=== PATIENT | female | born 1950 | race Caucasian/White ===

== ENCOUNTER → 2019-04-23 | Outpatient (CLI) | payer MEDICARE, OTHER ==
[2019-04-23 13:30] LABS: International Normalized Ratio 2.22; Prothrombin Time Results 22.7 Sec (9.7-11.5)
== END | disposition home or self-care (01) ==
LOC: LAB 12:54 → LAB SHORT 12:54
PROVIDERS: Nurse Practitioner
DX: I48.91 Unspecified atrial fibrillation (principal)
CPT/HCPCS: 85610

== ENCOUNTER 2020-10-26 15:59 | Observation (INO) | payer MEDICARE, OTHER ==
[~2020-10-26] VITALS: Ht 162.6 cm; Wt 131.9 kg
[2020-10-26 17:34] LABS: BASOPHILS ABSOLUTE AUTO 0.12 K/mm3 (0.00-0.23); BASOPHILS PERCENT AUTO 1 % (0-2); EOSINOPHILS ABSOLUTE AUTO 0.04 K/mm3 (0.00-0.68); EOSINOPHILS PERCENT AUTO 0 % (0-6); Hematocrit 49.4 % (33.0-51.0); Hemoglobin 16.2 g/dL (11.5-16.0); IMMATURE GRAN ABSOLUTE AUTO 0.08 K/mm3 (0.00-0.10); IMMATURE GRAN PERCENT AUTO 1 % (0-1); LYMPHOCYTES ABSOLUTE AUTO 1.19 K/mm3 (0.84-5.20); LYMPHOCYTES PERCENT AUTO 12 % (21-46); MONOCYTES ABSOLUTE AUTO 0.54 K/mm3 (0.16-1.47); MONOCYTES PERCENT AUTO 6 % (4-13); Mean Corpuscular HGB 28.8 pg (26.0-34.0); Mean Corpuscular HGB Conc 32.8 g/dL (31.5-36.5); Mean Corpuscular Volume 88 fL (80-100); NEUTROPHILS ABSOLUTE AUTO 7.62 K/mm3 (1.96-9.15); NEUTROPHILS PERCENT AUTO 80 % (41-73); Platelet Count 216 K/mm3 (150-400); RDW Coefficient Variation 13.9 % (11.7-14.2); RDW Standard Deviation 44.7 fL (35.1-46.3); Red Blood Cell Count 5.62 M/mm3 (3.80-5.20); White Blood Cell Count 9.59 K/mm3 (4.00-11.30)
[2020-10-26 17:53] LABS: Mean Platelet Volume 13.5 fL (9.1-12.4)
[2020-10-26 17:59] LABS: C-REACTIVE PROTEIN, EXT RANGE 1.81 mg/dL (0.000-0.300)
[2020-10-26 18:23] LABS: Albumin, Blood 3.6 g/dL (3.4-5.0); Albumin/Globulin Ratio 0.9 (0.8-1.8); Bilirubin, Total 0.8 mg/dL (0.1-1.0); Bun/Creatinine Ratio 40.7 (12.0-20.0); Calcium, Blood 10.2 mg/dL (8.5-10.1); Creatinine, Blood 1.35 mg/dL (0.40-1.00); Globulin, Blood 3.8 g/dL (2.2-4.0); Potassium, Blood 5.2 mmol/L (3.5-5.5); Total Protein, Blood 7.4 g/dL (6.4-8.2)
[2020-10-26] MEDS ORDERED: NOVOLOG FL100 UNIT/3 SC (19:11)
[2020-10-26] MEDS ORDERED: DIGOXIN 0.125 MG (19:11)
[2020-10-26] MEDS ORDERED: LOSA50 PO (19:12)
[2020-10-26] MEDS ORDERED: Amiodarone HCl200 MG PO (19:12)
[2020-10-26] MEDS ORDERED: EUTHYROX175 MC1 PO (19:13)
[2020-10-26] MEDS ORDERED: JANTOVEN5 M2 PO (19:14)
[2020-10-26] MEDS ORDERED: METO100 PO (19:14)
[2020-10-26] MEDS ORDERED: Simvastatin40 MG PO (19:14)
[2020-10-26 21:10] LABS: Source, Urine Catheter
[2020-10-26 21:12] LABS: Bilirubin, Urine Neg (Neg); Blood, Urine Neg (Neg); Glucose Qualitative, Urine 4+ (Neg); Ketones, Urine 2+ (Neg); Leukocyte Esterase, Urine Neg (Neg); Nitrite, Urine Neg (Neg); Protein, Urine Neg (Neg); Urobilinogen, Urine NORM (Normal)
[2020-10-26 21:18] LABS: Appearance, Urine Clear (Clear); Color, Urine Pale Yellow (P-Yellow)
[2020-10-26] MEDS ORDERED: DIGOX125 MC1 PO (21:42)
[2020-10-26 22:14] LABS: Glucose, Blood 237 mg/dL (70-99)
[2020-10-27 00:07] LABS: Glucose, Blood 399 mg/dL (70-99)
[2020-10-27 00:36] LABS: SARS-Cov-2 (COVID-19) PCR, MMC NEGATIVE (NEGATIVE)
[2020-10-27 06:24] LABS: Bun/Creatinine Ratio 44.8 (12.0-20.0); Calcium, Blood 9.3 mg/dL (8.5-10.1); Creatinine, Blood 1.25 mg/dL (0.40-1.00)
--- NOTE | 2020-10-27 06:50 | NUR ---
SALES ASSOCIATE SUMMARY PT NEW ADMIT. ARRIVED TO UNIT AROUND 0125/ PT IS A/O X4, PLEASANT AND COOPERATIVE. DENIES PAIN. PT IS ON BEDREST, SHE STATES SHE HAS NOT BEEN ABLE TO WALK SINCE SATURDAY DUE TO LEG WEAKNESS. PUREWICK IN PLACE FOR INCONTIENCE. PT STATES SHE HAS NOT HAD A BOWEL MOVEMENT SINCE SATURDAY. THIS RN WILL ATTEMPT TO CALL DR TO GET BOWEL CARE ON BOARD. REPORT GIVEN TO ONCOMING RN. CALL LIGHT WITHIN REACH, REPORT GIVEN TO ONCOMING RN.
--- NOTE | 2020-10-27 18:47 | NUR ---
PT IS AO X 4, PT ADMITED FOR HYPERGLYCEMIA,PT HAVE A FAT PACKET IN HER STOMACK, LAST BM WAS 10/[address] VO REGARDING THAT AND WAS TOLD HE'LL PUT THE ORTHER IN. PT IS IN BED, BED IN LOW POSITION, CALL LIGHT WITHIN REACH.WILL CONTINUE TO MONITOR
--- NOTE | 2020-10-27 19:25 | NUR ---
CREDIT CARD CLERK/AUTOMOTIVE METALSMITH REFERRAL - ADMIT: 10/26/20 DISCHARGE: TBD DX: DM WITH HYPERGLYCEMIA CC: Brea YUNG RESIDENCE: INDEPENDENT - LIVES AT HOME [address] [facility] [address] [address], [place]. [id number] NEXT OF KIN/CONTACTS: JACOB PHOENIX, CHILD, . PRIOR TO ADMIT - DME: DM SUPPLIES CCM: REFERRAL IN 2017 HHC/HOSPICE: [facility] IN 2019 UPDATE 10/27/20: PT. LIVES ALONE IN A STUDIO APARTMENT. SHE HAS A DAUGHTER JACOB WHO ASSISTS WITH TRANSPORTATION AND GROCERIES. PT. HAS A CANE THAT SHE USES AROUND THE HOUSE. WHEELCHAIR USED FOR OUTINGS THAT WOULD REQUIRE AMBULATING LONG DISTANCES. PT/OT PROVIDED EVAL TODAY. RECOMMENDATION FOR D/C TO SNF. PT. HAS MEDICARE - NO NEED FOR PRIOR AUTH. PT. POTENTIALLY APPROPRIATE FOR D/C WITHIN THE NEXT 24-72 HOURS BASED ON CHART REVIEW. PT. LIKELY TO BE ACCEPTED TO [facility] ON SAME DAY OF DISCHARGE IF BED AVAILABLE. IF PT. IS APPROPRIATE FOR DISCHARGE TOMORROW OR OVER THE WEEKEND, PACKET WILL BE SENT TO [facility] TOMORROW FOR POSSIBLE PLACEMENT WITH DATE OF D/C NOTED. PT. WILL NEED JAIL CARE PLAN. NO LONG-TERM COVERAGE NOTED IN CHART. WILL NEED TO TALK WITH LOCKSTITCH WAISTLINE JOINER ABOUT MEDICAID ASSISTANCE OR HIGHER A CAREGIVER. ALTERNATIVELY, HHC COULD BE CONSIDERED DEPENDENT UPON PATIENT'S PROGRESS AT SNF.
--- NOTE | 2020-10-28 05:14 | NUR ---
PT HAS BEEN AWAKE ALL NIGHT, VERY PLEASANT, ALERT AND ORIENTED X4. STATES "i JUST CANT SLEEP HERE AND WANT TO GO HOME." NOISE REDUCTION AND COUPLED CARE WAS COMPLETED. PT STATES SHE LIVES AT HOME ALONE, HAS NOT GOT UP SINCE ADMISSION, NOT WITH PT/OT EITHER AND WORRIES SHE CAN NOT HOLD HER OWN WEIGHT. REFUSED BEDPAN WELL. PURWICK RUNNING WITH CONSTANT SUCTION. Q2 TURNS, LINE SL AND WNL, STAFF WILL CONTINUE TO MONITOR. NO SM THIS SHIFT, ONLY SMEAR. BROWN COW CONSUMED. WILL CONT TO MONITOR AND GET BOWEL CARE REG ORDERED ON DAY SHIFT. WILL CONT TO MONITOR.
--- NOTE | 2020-10-28 11:37 | NUR ---
70 YR FEMALE ADMITTED FOR HYPOGLYCEMIA. PT IS A&O AND BEDBOUND DUE TO BILAT WX. PT WORKED WITH OT TODAY AND WAS SEEN BY MD. CLYDE MENDES ARE WORKING ON SNF PLACEMENT FOR REHAB. PT TRANSFERRED TO [facility] AND REPORT GIVEN TO JOSTIN Evans.
--- NOTE | 2020-10-28 12:33 | NUR ---
INSTRUCTED BY PRIMARY RN JOEL Godinez TO DC RIGHT WRIST IV D/T INFILTRATION. IV DC'ED @ 1208. TIP INTACT AND PRESSURE HELD UNTIL SITE CLEAR FROM BLEEDING. Clare ECHEVARRIA, RN
--- NOTE | 2020-10-28 18:35 | NUR ---
PT RESTING IN BED BRUSHING TEETH. PT TRANSFERRED TO 408 FROM 359 TODAY. PT HAS PUREWICK IN PLACE FOR URINE ELIMINATION ASSISTANCE D/T NOT BEING ABLE TO AMBULATE RIGHT NOW. PT WORKED WITH PT/OT TODAY. NO COMPLAINTS OF PAIN. WILL CONTINUE TO MONITOR FOR CHANGES AND REPORT TO ONCOMING SPECIAL EQUIPMENT TECHNICIAN RN.
--- NOTE | 2020-10-28 22:11 | NUR ---
PT REQUESTED SLEEP MED. ORDER OBTAINED FROM DR. MORAN
--- NOTE | 2020-10-28 22:36 | NUR ---
PT. IS ALERT AND ORIENTED. VSS. CBG 230. DENIES PAIN/DISCOMFORT/SOB. REQUESTS SOMETHING TO HELP SLEEP. ORDER OBTAINED FROM DR. MORAN AND CALLED PHARMACY TO FULFILL ORDER.
--- NOTE | 2020-10-29 04:49 | NUR ---
PT. SLEPT FOR MOST OF SHIFT AFTER DOSE OF ZOLPIDEM. WOKE ONCE AROUND 0330 AND STATES SHE FELT SHE SLEPT FOR HOURS AND FEEL MORE REFRESHED. WENT BACK TO SLEEP FOR ANOTHER 2 HOURS. NO CO PAIN OR DISCOMFORT.
--- NOTE | 2020-10-29 08:01 | NUR ---
SHIFT ASSESSMENT: MIN IS IN PLEASANT SPIRITS THIS AM, SITTING UP IN BED. A&O. LS DIM/CLEAR, HEART SOUNDS REGULAR, +BS NOTED. PURE WICK IN PLACE & HOOKED TO SUCTION. PT STATES SHE HAD SOME BLE PAIN/ RESTLESSNESS, TOLERABLE RIGHT NOW WITH NO INTERVENTION. BED IN LOWEST LOCKED POSITION. CALL LIGHT WITHIN REACH. WILL CONTINUE TO MONITOR.
--- NOTE | 2020-10-29 12:05 | NUR ---
PT HAS BEEN REQUESTING TO HAVE PURE WICK PLACED AGAIN. PT INFORMED THAT IT IS GOOD FOR HER TO GET UP WITH ASSISTANCE. PT EDUCATED THAT THIS PROMOTES & HELPS WITH GAINING HER STRENGTH BACK. PT STATES AN UNDESTANDING, BUT IS WORRIED THAT SHE WILL HAVE TO GO TOO FREQUENTLY FOR US. PT REMINDED THAT WE WILL ASSIST HER WHENEVER SHE NEEDS. RN & PT DECIDE TO SEE HOW GETTING UP TO THE BEDSIDE COMMODE GOES & GO FROM THERE. PT AGREES WITH THIS.
--- NOTE | 2020-10-29 17:52 | NUR ---
SHIFT SUMMARY: NO ACUTE CHANGES TODAY. WITH ENCOURAGEMENT PT UP TO RESTROOM WITH TWO PERSON ASSIST VIA WC. PT SITTING IN CHAIR FOR A FEW HOURS THIS AFTERNOON UNTIL REQUESTING TO BE PLACED BACK IN BED. PHYSICAL THERAPY WORKED WITH PT TODAY. THEY AGREE THAT PT NEEDS TO BE GETTING UP TO USE THE RESTROOM, WITH ASSISTANCE, TO PROMOTE INCREASING STRENGTH & MOBILITY. PT DOESN'T LIKE GETTING UP TO THE RESTROOM BUT AGREES TO DO SO & TOLERATES IT WELL WITH ASSISTANCE. PT IN PLEASANT SPIRITS TODAY. RESTING COMFORTABLLY, CALL LIGHT WITHIN REACH. WILL CONTINUE TO MONITOR UNTIL REPORT TO NIGHT NURSE.
--- NOTE | 2020-10-30 05:21 | NUR ---
PT. IS PLEASANT, ALERT AND ORIENTED. VSS. HS CBG WAS 194 AND DID NOT REQUIRE HUMOLOG. REQUESTED ZOLPIDEM AT 2100. HAS SLEPT WELL MOST OF NIGHT. HAS TAKEN PO FLUIDS AND HAD 1 VERY LARGE INCONTINENT VOID. SKIN CARE DONE, ATTENDS CHANGED AND LINEN CHANGED. DENIES ANY PAIN OR SOB. NO COMPLAINTS.
--- NOTE | 2020-10-30 16:50 | NUR ---
SHIFT SUMMARY: NO ACUTE CHANGES TODAY. PT SPENT SOME TIME IN RECLINER TODAY WITH ASSISTANCE & ENCOURAGEMENT TO DO SO. VSS. PT NAPPING IN BED NOW. BED IN LOWEST LOCKED POSITION. CALL LIGHT WITHIN REACH. WILL CONTINUE TO MONITOR UNTIL REPORT TO NIGHT NURSE.
--- NOTE | 2020-10-30 22:32 | NUR ---
AUSCULTATED PTS HEART RATE FOR 1 MINUTE AND NOTED HR TO BE 61, PRIOR TO ADMINISTERING PTS 2100 DOSE OF LOPRESSOR.
--- NOTE | 2020-10-31 00:13 | NUR ---
PTS BLOOD GLUCOSE CHECKED AT HS ON 10-30-20, RESULTS 234, PTS HS DOSE OF INSULIN GIVEN PER DR ORDERS.
--- NOTE | 2020-10-31 01:54 | NUR ---
PT SLEEPING APPEARS TO BE COMFORTABLE.
--- NOTE | 2020-10-31 03:12 | NUR ---
PT CONTINUES TO BE SLEEPING SOUNDLY. CALL LIGHT WITHIN REACH,BED IS THE LOWEST POISITION,SIDE RAILS UP X3.
--- NOTE | 2020-10-31 04:04 | NUR ---
0400 HOURLY ROUNDS, PT CONTINUES TO SLEEP, NO SIGN OF DISTRESS. CALL LIGHT IN PT REACH, PTS BED IN LOW POSITION, X3 SIDE RAILS UP.
--- NOTE | 2020-10-31 04:07 | NUR ---
0400 HOURLY ROUND PATIENT CONTINUES TO SLEEP SOUNDLY. DOES NOT APPEAR TO BE IN ANY DISTRESS, CALL LIGHT IN PT'S REACH. BED IN LOW POSITION AND SIDE RAILS UP X 3.
--- NOTE | 2020-10-31 05:11 | NUR ---
0500 PT ROUNDS, PT NOTED TO BE SLEEPING, NO S/S OF DISTRESS. CALL LIGHT INN PTS REACH, X3 SIDE RAILS UP AND BED IN LOW POSITION.
--- NOTE | 2020-10-31 05:28 | NUR ---
PT IS PLEASANT, ALERT AND ORIENTED. HS BLOOD GLUCOSE NOTED TO BE 234 AND PT RECEIVED HS DOSE OF SEMGLEE ORDERED BY MD. PT HELPED WITH REPOSITIONING IN BED WITH ASSIST OFX 2 RN'S AND ENCOURAGED TO COUGH AND DEEP BREATH REGULARLY, PT VOICES UNDERSTANDING. PT INCONTINENT OF URINE X1 DURING THE NIGHT, PTS BRIEF CHANGED AND CARLOS AREA CLEANSED, SMALL SCRATCH NOTED TO PTS RIGHT BUTTOCK, EXPLAINED TO PT IMPORTANCE OF REPOSITIONING AND INCREASING ACTIVITY LEVEL TO PREVENT SKIN BREAK DOWN.POWDER APPLIED TO PTS SKIN FOLDS ORDERED BY MD. PT DENIES PAIN AT BEDTIME AND REFUSED NIGHT TIME SLEEP AID. PT SLEPT MOST OF THE NIGHT WITH CALL LIGHT IN REACH, SIDE RAILS UP X3 AND BED IN LOW POSITION.
--- NOTE | 2020-10-31 08:57 | NUR ---
LATE ENTRY COPIED FROM [facility] EMR - WEEKEND UPDATES UPDATE 10/30/20: PT. WAS APPROPRIATE FOR D/C ON SATURDAY, HOWEVER; SHE WAS NOT APPROVED BY SNF. APPARENTLY THEY WERE NOT ACCEPTING PATIENT'S ON SATURDAY. PLAN TO CALL TOMORROW MORNING TO [facility] TO FIND OUT IF PT. HAS BEEN ACCEPTED TO [facility]. NOT SURE WHY THEY WERE UNABLE TO ACCEPT HER OVER THE WEEKEND.
--- NOTE | 2020-10-31 09:12 | NUR ---
Update 10/31/20: Pt. has been appropriate to D/C since 10/28/20. Packet faxed to [facility] at the time for review. Medicare as primary insurance - no need for prior auth. I was advied that [facility] was not accepting patient's on Saturday. Unsure as to why the patient was not accepted over the weekend. Call placed to Indy with [facility] requesting call back to discuss approval. Plan to schedule transport as soon as possible to avoid any delay if patient is accepted to facility. Pt. will need STAT COVID if accepted.
--- NOTE | 2020-10-31 12:53 | NUR ---
Accepted to [facility] today. Received notification from [facility] that pt. has been accepted to [facility] today. STAT COVID test ordered and will be faxed to facility pending completion. Transportation arranged through [facility] as pt. has [facility] as secondary. Requested 4pm transport. Waiting to receive confermation call on transport time. Plan to bring packet to room once D/C order complete and will fax to facility as well. Attempted to contact nurse caring for pt. via [employer]. Unable to contact at this time.
[2020-10-31 14:31] LABS: SARS-Cov-2 (COVID-19) PCR, MMC NEGATIVE (NEGATIVE)
[2020-10-31] MEDS ORDERED: ATOR10 PO (15:06)
[2020-10-31] MEDS ORDERED: GABA100 PO (15:07)
[2020-10-31] MEDS ORDERED: Acetaminophen650 M1 PO (15:07)
[2020-10-31] MEDS ORDERED: INSULANPEN SC (15:08)
[2020-10-31] MEDS ORDERED: DULCOLAX400 MG/5 M PO (15:09)
[2020-10-31] MEDS ORDERED: MIRALAX17 GM PO (15:11)
[2020-10-31] MEDS ORDERED: MICONAZOLE NIT130 GM TOP (15:11)
[2020-10-31] MEDS ORDERED: XARELTO20 MG PO (15:12)
--- NOTE | 2020-10-31 16:16 | NUR ---
PT BEING DISCHARGED TO [facility] VIA TRANSPORT VAN. IV DISCONTINUED IN TACT. ALL BELONGINGS PACKED INTO PT'S BAG. PT TRANSFERRED FROM BED TO WHEELCHAIR. PT DISCHARGED AT 1611.
== END 2020-10-31 16:10 ==
LOC: ER 15:59 → ERHOLD 16:00 → MEDS 16:00 → UNDODEPER 23:06 → MEDS 10-27 01:29 → ORSCIP 10-28 11:39
PROVIDERS: Emergency Medicine Emergency Medical Services; Internal Medicine; Student in an Organized Health Care Education/Training Program; ADMIT Internal Medicine
DX: E11.65 Type 2 diabetes mellitus with hyperglycemia (principal); I13.0 Hypertensive heart and chronic kidney disease with heart failure and stage 1 through stage 4 chronic kidney disease, or unspecified chronic kidney disease; I50.9 Heart failure, unspecified; N18.30 Chronic kidney disease, stage 3 unspecified; E11.22 Type 2 diabetes mellitus with diabetic chronic kidney disease; E11.42 Type 2 diabetes mellitus with diabetic polyneuropathy; E87.2 Acidosis; E86.0 Dehydration; E03.9 Hypothyroidism, unspecified; I48.20 Chronic atrial fibrillation, unspecified; M15.9 Polyosteoarthritis, unspecified; E78.5 Hyperlipidemia, unspecified; E66.01 Morbid (severe) obesity due to excess calories; Z68.43 Body mass index [BMI] 50.0-59.9, adult; Z79.01 Long term (current) use of anticoagulants; Z79.4 Long term (current) use of insulin; Z20.822 Contact with and (suspected) exposure to COVID-19
CPT/HCPCS: 36415; 71045; 80048; 80053; 81003; 82010; 82947; 84443; 85025; 85651; 86140; 96360; 96361; 97110; 97162; 97166; 97530; 99285-25; A9270; G0378; J1815; J7030; U0004

== ENCOUNTER 2021-01-18 17:30 | Observation (INO) | payer MEDICARE, OTHER ==
[~2021-01-18] VITALS: Ht 162.6 cm; Wt 141.0 kg
[~2021-01-18 17:30] MED LIST: ATOR10 PO; Acetaminophen650 M1 PO; Amiodarone HCl200 MG PO; DIGOX125 MC1 PO; DIGOXIN 0.125 MG; DULCOLAX400 MG/5 M PO; EUTHYROX175 MC1 PO; GABA100 PO; INSULANPEN SC; JANTOVEN5 M2 PO; LOSA50 PO; METO100 PO; MICONAZOLE NIT130 GM TOP; MIRALAX17 GM PO; NOVOLOG FL100 UNIT/3 SC; Simvastatin40 MG PO; XARELTO20 MG PO
[2021-01-18 17:56] LABS: BASOPHILS ABSOLUTE AUTO 0.12 K/mm3 (0.00-0.23); BASOPHILS PERCENT AUTO 1 % (0-2); EOSINOPHILS ABSOLUTE AUTO 0.27 K/mm3 (0.00-0.68); EOSINOPHILS PERCENT AUTO 3 % (0-6); Hematocrit 42.5 % (33.0-51.0); Hemoglobin 13.7 g/dL (11.5-16.0); IMMATURE GRAN ABSOLUTE AUTO 0.04 K/mm3 (0.00-0.10); IMMATURE GRAN PERCENT AUTO 1 % (0-1); LYMPHOCYTES ABSOLUTE AUTO 1.38 K/mm3 (0.84-5.20); LYMPHOCYTES PERCENT AUTO 16 % (21-46); MONOCYTES ABSOLUTE AUTO 0.68 K/mm3 (0.16-1.47); MONOCYTES PERCENT AUTO 8 % (4-13); Mean Corpuscular HGB 29.1 pg (26.0-34.0); Mean Corpuscular HGB Conc 32.2 g/dL (31.5-36.5); Mean Corpuscular Volume 90 fL (80-100); NEUTROPHILS ABSOLUTE AUTO 6.11 K/mm3 (1.96-9.15); NEUTROPHILS PERCENT AUTO 71 % (41-73); Platelet Count 194 K/mm3 (150-400); RDW Coefficient Variation 14.1 % (11.7-14.2); RDW Standard Deviation 47.3 fL (35.1-46.3); Red Blood Cell Count 4.71 M/mm3 (3.80-5.20)
[2021-01-18 18:12] LABS: Albumin, Blood 3.2 g/dL (3.4-5.0); Albumin/Globulin Ratio 0.9 (0.8-1.8); Bilirubin, Total 0.4 mg/dL (0.1-1.0); Bun/Creatinine Ratio 45.4 (12.0-20.0); Calcium, Blood 9.5 mg/dL (8.5-10.1); Creatinine, Blood 1.3 mg/dL (0.40-1.00); Globulin, Blood 3.7 g/dL (2.2-4.0); Potassium, Blood 4.7 mmol/L (3.5-5.5); Total Protein, Blood 6.9 g/dL (6.4-8.2)
[2021-01-18] MEDS ORDERED: SENN187 PO (19:26)
[2021-01-18] MEDS ORDERED: HUMALOG100 UNIT/1 SC (19:27)
[2021-01-18] MEDS ORDERED: HYDRA25 PO (19:28)
[2021-01-18] MEDS ORDERED: AMLO10 PO (19:28)
[2021-01-18] MEDS ORDERED: MIRALAX17 GM PO ×2 (19:29→19:30)
[2021-01-18] MEDS ORDERED: METF500 PO (19:29)
--- NOTE | 2021-01-18 22:29 | NUR ---
ADMIT PT ARRIVED VIA STRETCHER @2155. 4 PER SLIDE TRANSFER TO NEW BED. ADMITTED FOR INCREASED WEAKNESS BLE, UNABLE TO PERFORM OWN ADLS @HOME. ORIENTED TO RM & CALL LIGHT. WCTM.
--- NOTE | 2021-01-19 04:08 | NUR ---
SHIFT SUMMARY AOX4. VSS. REPORTS 7/10 PAIN IN BLE, STATES SHE HAS CHRONIC NEUROPATHY, MEDICATED 1X c TYLENOL. ADMITTED FOR INCREASED LEG WEAKNESS. REPORTS SHE HASNT BEEN ABLE TO PERFORM OWN ADLS OR AMBULATE @HOME SINCE DC FROM [facility] ON SATURDAY. +2 PITTING EDEMA BLE. DENIES SOB OR N/V. HAS REDNESS & EXCORIATIONS GLUTEAL CLEFT, SEE CHART. OCC URINE INCONTINENCE, PUREWICK CATH IN PLACE. PLAN TO POSSIBLY DC BACK TO [facility] TODAY. CALL LIGHT IN REACH. WCTM UNTIL DAY NURSE ASSUMES CARE.
[2021-01-19 06:07] LABS: Bun/Creatinine Ratio 49.1 (12.0-20.0); Calcium, Blood 8.9 mg/dL (8.5-10.1); Creatinine, Blood 1.08 mg/dL (0.40-1.00); Potassium, Blood 4.8 mmol/L (3.5-5.5)
[2021-01-19 11:51] LABS: Influenza A, PCR NEGATIVE (NEGATIVE); Influenza B, PCR NEGATIVE (NEGATIVE); Resp Syncytial Virus, PCR NEGATIVE (NEGATIVE); SARS-Cov-2 (COVID-19) PCR, MMC NEGATIVE (NEGATIVE)
--- NOTE | 2021-01-19 15:20 | NUR ---
pt discharged THE PT RETURNED TO [facility] ATTEMPTED TO CALL REPORT BUT THE UNIT DID NOT ANSWER THE PHONE MESSAGE LEFT FOR THEM TO CALL BACK FOR REPORT. PT APPEARED TO BE BREATHING EASILY ON RA AT THE TIME OF DC. PT WAS TRANSFERED VIA WHEELCAIR ACCOMPANIED BY THE ESCORT
--- NOTE | 2021-01-19 16:15 | NUR ---
Per Dr. Bhatti discharge appropriate for 01/19/21. SNF Discharge packet completed. Spoke with patient and she is aware of discharge and does not oppose. Patient returning (patient was discharged on Sat from SNF) to [facility]. Coordinated transportation with [facility]. Patient does not have any barriers to discharge on this date. Follow up visit with PCP and would care will be arranged through SNF.
== END 2021-01-19 15:08 ==
LOC: ER 17:30 → MEDS 17:31
PROVIDERS: Emergency Medicine; Family Medicine; ADMIT Internal Medicine
DX: R53.1 Weakness (principal); E66.01 Morbid (severe) obesity due to excess calories; Z68.43 Body mass index [BMI] 50.0-59.9, adult; I48.91 Unspecified atrial fibrillation; I13.0 Hypertensive heart and chronic kidney disease with heart failure and stage 1 through stage 4 chronic kidney disease, or unspecified chronic kidney disease; I50.9 Heart failure, unspecified; N18.30 Chronic kidney disease, stage 3 unspecified; E11.22 Type 2 diabetes mellitus with diabetic chronic kidney disease; E78.5 Hyperlipidemia, unspecified; M19.90 Unspecified osteoarthritis, unspecified site; Z79.4 Long term (current) use of insulin; Z79.899 Other long term (current) drug therapy; Z20.822 Contact with and (suspected) exposure to COVID-19
CPT/HCPCS: 0241U; 36415; 80048; 80053; 82947; 83880; 85025; 93005; 93010; 99285-25; A9270; G0378; J1815

== ENCOUNTER → 2021-02-28 | Outpatient (CLI) | payer MEDICARE, OTHER ==
[~2021-02-28] MED LIST changes: +AMLO10 PO; +FURO40 PO; +HUMALOG100 UNIT/1 SC; +HYDRA25 PO; +METF500 PO; +POTA10T PO; +SENN187 PO
[2021-02-28 09:51] LABS: Hematocrit 38.2 % (33.0-51.0); Mean Corpuscular HGB 28.6 pg (26.0-34.0); Mean Corpuscular HGB Conc 31.4 g/dL (31.5-36.5); Mean Corpuscular Volume 91 fL (80-100); Mean Platelet Volume 12.9 fL (9.1-12.4); Platelet Count 159 K/mm3 (150-400); RDW Coefficient Variation 14.5 % (11.7-14.2); RDW Standard Deviation 48.4 fL (35.1-46.3); White Blood Cell Count 6.56 K/mm3 (4.00-11.30)
[2021-02-28 10:03] LABS: Bun/Creatinine Ratio 40.2 (12.0-20.0); Calcium, Blood 9.1 mg/dL (8.5-10.1); Potassium, Blood 4.6 mmol/L (3.5-5.5)
== END | disposition home or self-care (01) ==
LOC: LAB UVN 08:13 → EDSTATUS 11:44
PROVIDERS: Internal Medicine
DX: I11.0 Hypertensive heart disease with heart failure (principal); I50.9 Heart failure, unspecified; E11.65 Type 2 diabetes mellitus with hyperglycemia
CPT/HCPCS: 80048; 85027

== ENCOUNTER → 2021-03-07 | Outpatient (CLI) | payer MEDICARE, OTHER ==
[2021-03-07 06:22] LABS: Hematocrit 35.8 % (33.0-51.0); Hemoglobin 11.3 g/dL (11.5-16.0); Mean Corpuscular HGB 28.8 pg (26.0-34.0); Mean Corpuscular HGB Conc 31.6 g/dL (31.5-36.5); Mean Corpuscular Volume 91 fL (80-100); Mean Platelet Volume 12.8 fL (9.1-12.4); Platelet Count 141 K/mm3 (150-400); RDW Standard Deviation 50.4 fL (35.1-46.3); Red Blood Cell Count 3.93 M/mm3 (3.80-5.20); White Blood Cell Count 5.14 K/mm3 (4.00-11.30)
[2021-03-07 06:48] LABS: Bun/Creatinine Ratio 26.1 (12.0-20.0); Calcium, Blood 8.6 mg/dL (8.5-10.1); Creatinine, Blood 1.42 mg/dL (0.40-1.00); Potassium, Blood 4.6 mmol/L (3.5-5.5)
== END | disposition home or self-care (01) ==
LOC: LAB UVN 06:10 → EDSTATUS 11:43
PROVIDERS: Internal Medicine
DX: E11.65 Type 2 diabetes mellitus with hyperglycemia (principal); E11.22 Type 2 diabetes mellitus with diabetic chronic kidney disease; N18.30 Chronic kidney disease, stage 3 unspecified
CPT/HCPCS: 80048; 85027

== ENCOUNTER 2021-03-23 12:38 | Emergency (ER) | payer MEDICARE, OTHER ==
[~2021-03-23] VITALS: Ht 162.6 cm; Wt 138.3 kg
[~2021-03-23 12:38] MED LIST changes: -FURO40 PO; -POTA10T PO
[2021-03-23 15:15] LABS: BASOPHILS ABSOLUTE AUTO 0.09 K/mm3 (0.00-0.23); BASOPHILS PERCENT AUTO 1 % (0-2); EOSINOPHILS ABSOLUTE AUTO 0.27 K/mm3 (0.00-0.68); EOSINOPHILS PERCENT AUTO 3 % (0-6); Hematocrit 39.5 % (33.0-51.0); Hemoglobin 12.6 g/dL (11.5-16.0); IMMATURE GRAN ABSOLUTE AUTO 0.09 K/mm3 (0.00-0.10); IMMATURE GRAN PERCENT AUTO 1 % (0-1); LYMPHOCYTES ABSOLUTE AUTO 1.88 K/mm3 (0.84-5.20); LYMPHOCYTES PERCENT AUTO 23 % (21-46); MONOCYTES ABSOLUTE AUTO 0.71 K/mm3 (0.16-1.47); MONOCYTES PERCENT AUTO 9 % (4-13); Mean Corpuscular HGB 28.6 pg (26.0-34.0); Mean Corpuscular HGB Conc 31.9 g/dL (31.5-36.5); Mean Corpuscular Volume 90 fL (80-100); Mean Platelet Volume 12.4 fL (9.1-12.4); NEUTROPHILS ABSOLUTE AUTO 5.15 K/mm3 (1.96-9.15); NEUTROPHILS PERCENT AUTO 63 % (41-73); Platelet Count 206 K/mm3 (150-400); RDW Coefficient Variation 14.4 % (11.7-14.2); RDW Standard Deviation 47.5 fL (35.1-46.3); White Blood Cell Count 8.19 K/mm3 (4.00-11.30)
[2021-03-23 15:41] LABS: Albumin, Blood 2.7 g/dL (3.4-5.0); Albumin/Globulin Ratio 0.9 (0.8-1.8); Bilirubin, Total 0.5 mg/dL (0.1-1.0); Bun/Creatinine Ratio 38.2 (12.0-20.0); Calcium, Blood 9.2 mg/dL (8.5-10.1); Creatinine, Blood 1.23 mg/dL (0.40-1.00); Globulin, Blood 3.1 g/dL (2.2-4.0); Potassium, Blood 4.7 mmol/L (3.5-5.5); Total Protein, Blood 5.8 g/dL (6.4-8.2)
[2021-03-23 15:42] LABS: Source, Urine Clean Catch
[2021-03-23 15:46] LABS: Bilirubin, Urine Neg (Neg); Blood, Urine Neg (Neg); Color, Urine Yellow (P-Yellow); Glucose Qualitative, Urine Neg (Neg); Ketones, Urine Neg (Neg); Leukocyte Esterase, Urine Neg (Neg); Nitrite, Urine Neg (Neg); Protein, Urine Neg (Neg); Urobilinogen, Urine NORM (Normal)
[2021-03-23 16:09] LABS: Appearance, Urine Hazy (Clear)
[2021-03-23 16:12] LABS: Bacteria Many /hpf; Red Blood Cells, Urine 0-2 /hpf (0-2); Squamous Epithelial Cells Few /hpf (Few)
== END 2021-03-23 20:05 | disposition home or self-care (01) ==
LOC: ER 12:38
PROVIDERS: Physician Assistant
DX: I95.9 Hypotension, unspecified (principal); R00.0 Tachycardia, unspecified; I13.0 Hypertensive heart and chronic kidney disease with heart failure and stage 1 through stage 4 chronic kidney disease, or unspecified chronic kidney disease; I50.9 Heart failure, unspecified; I48.91 Unspecified atrial fibrillation; E11.22 Type 2 diabetes mellitus with diabetic chronic kidney disease; N18.9 Chronic kidney disease, unspecified; E03.9 Hypothyroidism, unspecified; M19.90 Unspecified osteoarthritis, unspecified site; Z79.899 Other long term (current) drug therapy; Z79.52 Long term (current) use of systemic steroids; Z79.4 Long term (current) use of insulin; Z86.16 Personal history of COVID-19
CPT/HCPCS: 80053; 81001; 84484; 85025; 87086; 93005; 93010; 96361; 96374; 99285-25; J7030

== ENCOUNTER 2021-05-03 17:20 | Inpatient (IN) | payer MEDICARE, OTHER ==
[~2021-05-03] VITALS: Ht 162.6 cm; Wt 142.4 kg
[2021-05-03 18:20] LABS: Albumin, Blood 3.2 g/dL (3.4-5.0); Bilirubin, Total 0.7 mg/dL (0.1-1.0); Bun/Creatinine Ratio 33.1 (12.0-20.0); Calcium, Blood 9.2 mg/dL (8.5-10.1); Creatinine, Blood 1.42 mg/dL (0.40-1.00); Globulin, Blood 3.3 g/dL (2.2-4.0); Potassium, Blood 4.5 mmol/L (3.5-5.5); Total Protein, Blood 6.5 g/dL (6.4-8.2)
[2021-05-03 20:49] LABS: Source, Urine Clean Catch
[2021-05-03 21:02] LABS: Bilirubin, Urine Neg (Neg); Blood, Urine Neg (Neg); Glucose Qualitative, Urine Neg (Neg); Ketones, Urine Neg (Neg); Leukocyte Esterase, Urine 1+ (Neg); Nitrite, Urine Neg (Neg); Protein, Urine 1+ (Neg); Urobilinogen, Urine NORM (Normal)
[2021-05-03 21:24] LABS: Appearance, Urine Hazy (Clear); Color, Urine Yellow (P-Yellow)
[2021-05-03 21:25] LABS: Bacteria Mod /hpf; Red Blood Cells, Urine 0-2 /hpf (0-2); Squamous Epithelial Cells Mod /hpf (Few)
[2021-05-03 21:37] LABS: BASOPHILS ABSOLUTE AUTO 0.16 K/mm3 (0.00-0.23); BASOPHILS PERCENT AUTO 2 % (0-2); EOSINOPHILS ABSOLUTE AUTO 0.22 K/mm3 (0.00-0.68); EOSINOPHILS PERCENT AUTO 3 % (0-6); Hematocrit 42.8 % (33.0-51.0); Hemoglobin 13.2 g/dL (11.5-16.0); IMMATURE GRAN ABSOLUTE AUTO 0.03 K/mm3 (0.00-0.10); IMMATURE GRAN PERCENT AUTO 0 % (0-1); LYMPHOCYTES ABSOLUTE AUTO 2.06 K/mm3 (0.84-5.20); LYMPHOCYTES PERCENT AUTO 26 % (21-46); MONOCYTES ABSOLUTE AUTO 0.66 K/mm3 (0.16-1.47); MONOCYTES PERCENT AUTO 8 % (4-13); Mean Corpuscular HGB 27.6 pg (26.0-34.0); Mean Corpuscular HGB Conc 30.8 g/dL (31.5-36.5); Mean Corpuscular Volume 90 fL (80-100); Mean Platelet Volume 12.7 fL (9.1-12.4); NEUTROPHILS ABSOLUTE AUTO 4.94 K/mm3 (1.96-9.15); NEUTROPHILS PERCENT AUTO 61 % (41-73); Platelet Count 216 K/mm3 (150-400); RDW Coefficient Variation 14.6 % (11.7-14.2); RDW Standard Deviation 48.4 fL (35.1-46.3); Red Blood Cell Count 4.78 M/mm3 (3.80-5.20); White Blood Cell Count 8.07 K/mm3 (4.00-11.30)
[2021-05-03 22:19] LABS: Magnesium, Blood 2.4 mg/dL (1.6-2.4)
[2021-05-03 23:30] LABS: Influenza A, PCR NEGATIVE (NEGATIVE); Influenza B, PCR NEGATIVE (NEGATIVE); Resp Syncytial Virus, PCR NEGATIVE (NEGATIVE); SARS-Cov-2 (COVID-19) PCR, MMC NEGATIVE (NEGATIVE)
[2021-05-04] MEDS ORDERED: LOSA50 PO (01:32)
[2021-05-04] MEDS ORDERED: POTA10T PO (01:35)
[2021-05-04] MEDS ORDERED: FURO40 PO (01:36)
[2021-05-04 04:43] LABS: BASOPHILS PERCENT AUTO 1 % (0-2); EOSINOPHILS ABSOLUTE AUTO 0.21 K/mm3 (0.00-0.68); EOSINOPHILS PERCENT AUTO 3 % (0-6); Hematocrit 39.4 % (33.0-51.0); Hemoglobin 12.3 g/dL (11.5-16.0); IMMATURE GRAN ABSOLUTE AUTO 0.02 K/mm3 (0.00-0.10); IMMATURE GRAN PERCENT AUTO 0 % (0-1); LYMPHOCYTES ABSOLUTE AUTO 1.92 K/mm3 (0.84-5.20); LYMPHOCYTES PERCENT AUTO 25 % (21-46); MONOCYTES ABSOLUTE AUTO 0.63 K/mm3 (0.16-1.47); MONOCYTES PERCENT AUTO 8 % (4-13); Mean Corpuscular HGB 28.1 pg (26.0-34.0); Mean Corpuscular HGB Conc 31.2 g/dL (31.5-36.5); Mean Corpuscular Volume 90 fL (80-100); NEUTROPHILS ABSOLUTE AUTO 4.88 K/mm3 (1.96-9.15); NEUTROPHILS PERCENT AUTO 63 % (41-73); Platelet Count 161 K/mm3 (150-400); RDW Coefficient Variation 14.6 % (11.7-14.2); RDW Standard Deviation 48.2 fL (35.1-46.3); Red Blood Cell Count 4.38 M/mm3 (3.80-5.20); White Blood Cell Count 7.76 K/mm3 (4.00-11.30)
[2021-05-04 04:48] LABS: Mean Platelet Volume 13.3 fL (9.1-12.4)
[2021-05-04 05:05] LABS: Bilirubin, Total 0.7 mg/dL (0.1-1.0); Bun/Creatinine Ratio 33.6 (12.0-20.0); Calcium, Blood 9.4 mg/dL (8.5-10.1); Creatinine, Blood 1.37 mg/dL (0.40-1.00); Globulin, Blood 2.9 g/dL (2.2-4.0); Potassium, Blood 3.8 mmol/L (3.5-5.5); Total Protein, Blood 5.9 g/dL (6.4-8.2)
--- NOTE | 2021-05-04 06:12 | NUR ---
ADMIT/SHIFT SUMMARY PT ARRIVED TO UNIT AT APPROXIMATELY 0120. ORIENTED TO ROOM AND CALL LIGHT. AFIB IN 120S ON CONTINOUS TELE MONITORING. A&OX4, NO COMPLAINTS OF PAIN. VSS PER PT TREND. SPOKE WITH ON-CALL MD REGARDING HEART RATE AND DILTIZEM X1 IV ORDERED PER PROVIDER. SEE EMAR FOR DETAILS. WILL PASS ON TO DAY RN
[2021-05-04 07:30] LABS: Free Thyroxine 1.55 ng/dL (0.70-1.60)
[2021-05-04 07:32] LABS: Thyroid Stimulating Hormone 2.81 uIU/mL (0.360-4.800)
--- NOTE | 2021-05-04 17:54 | NUR ---
Shift summary: Pt remains A&Ox4. VSS. Afebrile. No c/o pain. Davidck maintained- AUO. BM x1. Tolerating current diet. K replaced- repeat labs ordered tomorrow AM. Frequent rounds to ensure pt safety. Pt repositioned q2hrs and pressure points offloaded to prevent pressure ulcers. Pt in no apparent distress at this time. Will continue to monitor until transfer of care to oncoming RN.
--- NOTE | 2021-05-05 05:30 | NUR ---
SHIFT SUMMARY PT SLEPT WELL OVERNIGHT, ORIENTED X4, VSS PER PT TREND ON 2L NC. AFIB IN 120S ON TELEMETRY CONSISTENTLY. Q2 TURNS. BC X1 CAME BACK +, NOTIFIED (SEE CRITICAL LAB NOTIFICATION FOR DETAILS). NO COMPLAINTS OF PAIN. BED ALARM SET, BED IN LOWEST POSITION. WILL CONTINUE TO MONITOR AND PASS ON TO DAY RN.
--- NOTE | 2021-05-05 17:28 | NUR ---
Shift summary: Pt remains A&Ox4. VSS. Afebrile. No c/o pain. AUO. BM x1. Tolerating current diet. HR/BP meds adjusted d/t nonsustaining tachycardia. Possible d/c home tomorrow. Frequent rounds to ensure pt safety. Pt repositioned q2hrs and pressure points offloaded to prevent pressure ulcers. Pt in no apparent distress at this time. Will continue to monitor until transfer of care to oncoming RN.
[2021-05-06 01:50] LABS: Vancomycin, Trough 22.3 ug/mL (5.0-10.0)
--- NOTE | 2021-05-06 06:29 | NUR ---
SHIFT SUMMARY PT SLEPT WELL OVERNIGHT, ORIENTED X4, VSS PER PT TREND ON RA. Q2 TURN. AFIB IN 100S -120S ON TELEMETRY. SOME COMPLAINTS OF GENERAL DISCOMFORT AND NAUSEA. PRN TYLENOL GIVEN X1 WITH RELIEF. WILL CONTINUE TO MONITOR AND PASS ON TO DAY RN
[2021-05-06 10:38] LABS: Bun/Creatinine Ratio 32.9 (12.0-20.0); Calcium, Blood 9.4 mg/dL (8.5-10.1); Creatinine, Blood 1.43 mg/dL (0.40-1.00); Potassium, Blood 4.2 mmol/L (3.5-5.5)
[2021-05-06 15:16] LABS: Source, Urine Foley catheter
[2021-05-06 15:18] LABS: Bilirubin, Urine Neg (Neg); Blood, Urine Neg (Neg); Glucose Qualitative, Urine 2+ (Neg); Ketones, Urine Neg (Neg); Leukocyte Esterase, Urine Neg (Neg); Nitrite, Urine Neg (Neg); Protein, Urine Neg (Neg); Urobilinogen, Urine NORM (Normal); pH, Urine 6.5 (5.0-8.0)
[2021-05-06 15:24] LABS: Appearance, Urine Clear (Clear); Color, Urine Pale Yellow (P-Yellow)
--- NOTE | 2021-05-06 18:17 | NUR ---
Shift summary: Pt remains A&Ox4. VSS- MD aware of fluctuating HR. Afebrile. No c/o pain. FC placed d/t need for accurate I&O during diruresis, AUO. No BM- c/o constipation. Tolerating current diet. Frequent rounds to ensure pt safety. Pt repositioned q2hrs and pressure points offloaded to prevent pressure ulcers. Pt in no apparent distress at this time. Will continue to monitor until transfer of care to oncoming RN.
[2021-05-06 21:17] LABS: Vancomycin, Random 16.6 ug/mL
--- NOTE | 2021-05-07 04:45 | NUR ---
End of Shift Summary: Overnight went well, no acute events, VSS, room air, no pain or SOB, Roca Cath with adequate output, BLE swelling slowly improving, small BM overnight but could use more bowel care, or a suppository. Will continue to monitor JOSTIN Wall
--- NOTE | 2021-05-07 09:18 | NUR ---
PATIENT'S HEART RATE IN 120s-130s IN A FLUTTER PER HISTORIC SITES SUPERVISOR, PATIENT DENIES CHEST PAIN/PALPITATIONS. DR. PLATT NOTIFIED, NO NEW ORDERS AT THIS TIME.
--- NOTE | 2021-05-07 14:15 | NUR ---
DISCUSSED PATIENT'S HEART RATE OF 130s WITH DR. PLATT, PHYSICIAN STATED THAT HR IN 130s ACCEPTABLE AT THIS TIME. WCTM.
--- NOTE | 2021-05-07 16:48 | NUR ---
SHIFT SUMMARY NO ACUTE EVENTS THIS SHIFT, VSS. PT'S REMAINED IN ATRIAL FLUTTER AND ELEVATED HEART RATE IN THE 120s-130s THIS SHIFT. SEE PREVIOUS NURSE NOTES. PT ON ROOM AIR, TOLERATING WELL. PT'S BLOOD SUGAR ELEVATED, INSULIN GIVEN PER EMAR. PT COMPLAINED OF CONSTIPATION, MILK OF MAGNESIA GIVEN PER EMAR. PT ALSO COMPLAINED OF PAIN AND GIVEN TYLENOL, TO THE PATIENT'S SATISFACTION. JOE DRAINING TO GRAVITY.
[2021-05-08 03:47] LABS: BASOPHILS ABSOLUTE AUTO 0.11 K/mm3 (0.00-0.23); BASOPHILS PERCENT AUTO 2 % (0-2); EOSINOPHILS ABSOLUTE AUTO 0.14 K/mm3 (0.00-0.68); EOSINOPHILS PERCENT AUTO 2 % (0-6); Hematocrit 39.2 % (33.0-51.0); Hemoglobin 12.5 g/dL (11.5-16.0); IMMATURE GRAN ABSOLUTE AUTO 0.02 K/mm3 (0.00-0.10); IMMATURE GRAN PERCENT AUTO 0 % (0-1); LYMPHOCYTES ABSOLUTE AUTO 1.37 K/mm3 (0.84-5.20); LYMPHOCYTES PERCENT AUTO 23 % (21-46); MONOCYTES ABSOLUTE AUTO 0.48 K/mm3 (0.16-1.47); MONOCYTES PERCENT AUTO 8 % (4-13); Mean Corpuscular HGB 28.3 pg (26.0-34.0); Mean Corpuscular HGB Conc 31.9 g/dL (31.5-36.5); Mean Corpuscular Volume 89 fL (80-100); Mean Platelet Volume 12.7 fL (9.1-12.4); NEUTROPHILS ABSOLUTE AUTO 3.78 K/mm3 (1.96-9.15); NEUTROPHILS PERCENT AUTO 64 % (41-73); Platelet Count 214 K/mm3 (150-400); RDW Coefficient Variation 14.6 % (11.7-14.2); RDW Standard Deviation 47.1 fL (35.1-46.3); Red Blood Cell Count 4.42 M/mm3 (3.80-5.20)
[2021-05-08 04:15] LABS: Bun/Creatinine Ratio 33.6 (12.0-20.0); Calcium, Blood 9.2 mg/dL (8.5-10.1); Creatinine, Blood 1.31 mg/dL (0.40-1.00); Magnesium, Blood 2.1 mg/dL (1.6-2.4); Potassium, Blood 4.1 mmol/L (3.5-5.5)
--- NOTE | 2021-05-08 04:49 | NUR ---
PATIENT REMAINS IN BED, NOTED ASLEEP ON AWAKING A LITTLE DISORIENTED AT FIRST. DEINES ANY PAIN ON ASESSEMENT. LUNGS SOUNDS ASSESSEMENT, BOWEL SOUND PATENT. PATIENT IS NOW ORIENTED. SAFETY MEASURES IN PLACED. CALL LIGHT WITHIN REACH. PENDING DISCHARGE IN A.M.
[2021-05-08 06:44] LABS: Influenza A, PCR NEGATIVE (NEGATIVE); Influenza B, PCR NEGATIVE (NEGATIVE); Resp Syncytial Virus, PCR NEGATIVE (NEGATIVE); SARS-Cov-2 (COVID-19) PCR, MMC NEGATIVE (NEGATIVE)
--- NOTE | 2021-05-08 13:03 | NUR ---
40 UNITS LANTUS GIVEN PER MD ORDER, SEE EMAR. FOLLOW UP GLUCOSE CHECKED, NO HYPOGLYCEMIA NOTED.
--- NOTE | 2021-05-08 13:54 | NUR ---
DISCHARGE NO ACUTE EVENTS THIS SHIFT, VSS. PT ALERT AND AGREEABLE TO [place]. PT ASSISTED TO HOME WHEELCHAIR, PT AND PERSONAL ITEMS TAKEN TO VEHICLE BY TRANSPORT PERSONNEL.
--- NOTE | 2021-05-08 15:29 | NUR ---
REPORT GIVEN TO AMARJIT FRANKEL AT [facility].
--- NOTE | 2021-05-08 17:09 | NUR ---
Per Dr. Dalal discharge appropriate. Patient does not oppose discharge. Patient discharged back to [address] She has resided at [facility] since Oct. Date of discharge: 05/08/2021 Date of admission: 05/04/2021 Transportation provided by: [facility] contract transportation service DME Ordered: none Follow-ups needed: [facility] will contact facility to schedule hospital follow-up visit. Provider/PCP: Dr. Herbert Lawrence When: within one week Specialty: N/A [facility]: [phone] Patient: [phone] Comment: [facility] will contact PCP with patient transitional needs/appointments/medication management, social service needs. No barriers to discharge. Patient has a support network.
== END 2021-05-08 13:43 | disposition hospice, home (50) | DRG 603 ==
LOC: ER 17:20 → PCU 05-04 00:04
PROVIDERS: Family Medicine; Internal Medicine; Physician Assistant; Student in an Organized Health Care Education/Training Program; ADMIT Internal Medicine
DX: L03.115 Cellulitis of right lower limb (principal); I13.0 Hypertensive heart and chronic kidney disease with heart failure and stage 1 through stage 4 chronic kidney disease, or unspecified chronic kidney disease; I48.92 Unspecified atrial flutter; Z68.43 Body mass index [BMI] 50.0-59.9, adult; Z20.822 Contact with and (suspected) exposure to COVID-19; I50.9 Heart failure, unspecified; N18.30 Chronic kidney disease, stage 3 unspecified; E03.9 Hypothyroidism, unspecified; E66.01 Morbid (severe) obesity due to excess calories; I48.91 Unspecified atrial fibrillation; M19.90 Unspecified osteoarthritis, unspecified site; E11.22 Type 2 diabetes mellitus with diabetic chronic kidney disease; Z79.01 Long term (current) use of anticoagulants; Z79.899 Other long term (current) drug therapy; Z87.891 Personal history of nicotine dependence; Z79.4 Long term (current) use of insulin; Z28.21 Immunization not carried out because of patient refusal
CPT/HCPCS: 0241U; 36415; 71045; 80048; 80053; 80202; 81001; 81003; 82947; 83605; 83735; 84439; 84443; 84484; 85025; 87040; 87086; 93005; 93010; 96365; 96375; 99285-25; A9270; J0690; J1815; J1940; J3370; J3480; J7030; J7050

== ENCOUNTER → 2021-05-16 | Outpatient (CLI) | payer MEDICARE, OTHER ==
[~2021-05-16] MED LIST changes: +FURO40 PO; +POTA10T PO
[2021-05-16 14:43] LABS: Source, Urine Voided
[2021-05-16 15:42] LABS: Bilirubin, Urine Neg (Neg); Blood, Urine 4+ (Neg); Glucose Qualitative, Urine Neg (Neg); Ketones, Urine Neg (Neg); Leukocyte Esterase, Urine 3+ (Neg); Nitrite, Urine Pos (Neg); Protein, Urine 2+ (Neg); Specific Gravity, Urine 1.015 (1.003-1.022); Urobilinogen, Urine NORM (Normal)
[2021-05-16 16:00] LABS: Appearance, Urine Cloudy (Clear); Color, Urine Pale Yellow (P-Yellow)
[2021-05-16 16:01] LABS: Amorphous Mod (0-Heavy); Bacteria Many /hpf; Mucus Light (0-Heavy); Red Blood Cells, Urine 25-50 /hpf (0-2); Squamous Epithelial Cells Few /hpf (Few); Yeast/Fungi Urine Rare /hpf
[2021-05-16 16:02] LABS: Renal Epithelial Rare /hpf (0-Rare)
== END | disposition home or self-care (01) ==
LOC: EDSTATUS 13:24 → LAB UVN 14:42
PROVIDERS: Family Medicine
DX: E11.42 Type 2 diabetes mellitus with diabetic polyneuropathy (principal); E11.22 Type 2 diabetes mellitus with diabetic chronic kidney disease; N18.30 Chronic kidney disease, stage 3 unspecified
CPT/HCPCS: 81001; 82043; 87077; 87086; 87186

== ENCOUNTER → 2021-05-17 | Outpatient (CLI) | payer MEDICARE, OTHER ==
[2021-05-17 06:22] LABS: Alanine Aminotransfer (ALT/SGP 29 U/L (12-78); Albumin, Blood 2.9 g/dL (3.4-5.0); Albumin/Globulin Ratio 0.9 (0.8-1.8); Alk Phos 88 U/L (50-136); Anion Gap 7 mmol/L (6-16); Aspartate Aminotrans (AST/SGOT 21 U/L (12-37); Bilirubin, Total 0.8 mg/dL (0.1-1.0); Blood Urea Nitrogen 46 mg/dL (8-24); Bun/Creatinine Ratio 30.5 (12.0-20.0); CHOL/HDL RATIO 3.4; CO2, Blood 31 mmol/L (21-32); Calcium, Blood 9.2 mg/dL (8.5-10.1); Chloride, Blood 104 mmol/L (98-108); Cholesterol 155 mg/dL (50-200); Creatinine, Blood 1.51 mg/dL (0.40-1.00); Globulin, Blood 3.1 g/dL (2.2-4.0); Glomerular Filtration Rate 34 (60-); Glucose, Blood 125 mg/dL (70-99); HDL Cholesterol 45 mg/dL (>39); LDL/HDL RATIO 2.1; Low Density Lipoprotein Chol 95 mg/dL (0-110); Potassium, Blood 4.2 mmol/L (3.5-5.5); Sodium, Blood 142 mmol/L (136-145); Triglycerides 74 mg/dL (30-160); Very Low Density Lipoprot Chol 14 mg/dL (6-32)
== END | disposition home or self-care (01) ==
LOC: LAB UVN 05:00 → EDSTATUS 13:25
PROVIDERS: Family Medicine
DX: E78.5 Hyperlipidemia, unspecified (principal); E11.9 Type 2 diabetes mellitus without complications
CPT/HCPCS: 80053; 80061; 83036

== ENCOUNTER → 2021-06-22 | Outpatient (CLI) | payer MEDICARE, OTHER ==
[2021-06-22 13:20] LABS: Appearance, Urine Hazy (Clear); Bilirubin, Urine Neg (Neg); Blood, Urine 1+ (Neg); Color, Urine Yellow (P-Yellow); Glucose Qualitative, Urine Neg (Neg); Ketones, Urine Neg (Neg); Leukocyte Esterase, Urine 3+ (Neg); Nitrite, Urine Neg (Neg); Protein, Urine 1+ (Neg); Urobilinogen, Urine NORM (Normal)
[2021-06-22 13:53] LABS: White Blood Cells, Urine 25-50 /hpf (0-5)
[2021-06-22 13:54] LABS: Amorphous Light (0-Heavy); Bacteria Many /hpf; Calcium Oxalate Crystals Rare /hpf; Mucus Light (0-Heavy); Red Blood Cells, Urine 0-2 /hpf (0-2); Squamous Epithelial Cells Few /hpf (Few)
== END | disposition home or self-care (01) ==
LOC: LAB UVN 11:58 → EDSTATUS 15:38
PROVIDERS: Family Medicine
DX: R35.0 Frequency of micturition (principal)
CPT/HCPCS: 81001; 87077; 87086; 87186

== ENCOUNTER → 2021-11-06 | Outpatient (CLI) | payer MEDICARE, OTHER ==
[2021-11-06 18:14] LABS: Source, Urine Clean Catch
[2021-11-06 18:23] LABS: Appearance, Urine Hazy (Clear); Bilirubin, Urine Neg (Neg); Blood, Urine 5+ (Neg); Color, Urine Yellow (P-Yellow); Glucose Qualitative, Urine Neg (Neg); Ketones, Urine Neg (Neg); Leukocyte Esterase, Urine 2+ (Neg); Nitrite, Urine Pos (Neg); Protein, Urine 1+ (Neg); Specific Gravity, Urine 1.015 (1.003-1.022); Urobilinogen, Urine NORM (Normal)
[2021-11-06 18:45] LABS: Bacteria Many /hpf; Squamous Epithelial Cells Few /hpf (Few)
== END ==
LOC: EDSTATUS 09:52 → LAB UVN 17:15
PROVIDERS: Family Medicine
DX: R30.0 Dysuria (principal)
CPT/HCPCS: 81001; 87077; 87086; 87186

== ENCOUNTER → 2021-11-24 | Outpatient (CLI) | payer MEDICARE, OTHER ==
[2021-11-24 14:35] LABS: Source, Urine Clean Catch
[2021-11-24 15:09] LABS: Appearance, Urine Clear (Clear); Bilirubin, Urine Neg (Neg); Blood, Urine Neg (Neg); Glucose Qualitative, Urine Neg (Neg); Ketones, Urine Neg (Neg); Leukocyte Esterase, Urine 1+ (Neg); Nitrite, Urine Pos (Neg); Protein, Urine Neg (Neg); Specific Gravity, Urine 1.015 (1.003-1.022); Urobilinogen, Urine NORM (Normal); pH, Urine 6.5 (5.0-8.0)
[2021-11-24 16:31] LABS: Color, Urine Pale Yellow (P-Yellow)
[2021-11-24 16:34] LABS: Bacteria Many /hpf; Mucus Light (0-Heavy); Red Blood Cells, Urine 0-2 /hpf (0-2); Squamous Epithelial Cells Few /hpf (Few); Transitional Epithelial Cells Rare /hpf (0-Rare)
== END ==
LOC: EDSTATUS 12:19 → LAB UVN 14:34
PROVIDERS: Nurse Practitioner Family
DX: N18.30 Chronic kidney disease, stage 3 unspecified (principal)
CPT/HCPCS: 81001; 87077; 87086; 87186

== ENCOUNTER → 2022-01-24 | Outpatient (CLI) | payer MEDICARE, OTHER ==
[2022-01-24 15:34] LABS: BASOPHILS ABSOLUTE AUTO 0.13 K/mm3 (0.00-0.23); BASOPHILS PERCENT AUTO 2 % (0-2); EOSINOPHILS ABSOLUTE AUTO 0.22 K/mm3 (0.00-0.68); EOSINOPHILS PERCENT AUTO 3 % (0-6); Hematocrit 38.8 % (33.0-51.0); Hemoglobin 12.1 g/dL (11.5-16.0); IMMATURE GRAN ABSOLUTE AUTO 0.04 K/mm3 (0.00-0.10); IMMATURE GRAN PERCENT AUTO 1 % (0-1); LYMPHOCYTES ABSOLUTE AUTO 1.89 K/mm3 (0.84-5.20); LYMPHOCYTES PERCENT AUTO 25 % (21-46); MONOCYTES ABSOLUTE AUTO 0.65 K/mm3 (0.16-1.47); MONOCYTES PERCENT AUTO 9 % (4-13); Mean Corpuscular HGB 26.4 pg (26.0-34.0); Mean Corpuscular HGB Conc 31.2 g/dL (31.5-36.5); Mean Corpuscular Volume 85 fL (80-100); Mean Platelet Volume 12.5 fL (9.1-12.4); NEUTROPHILS ABSOLUTE AUTO 4.58 K/mm3 (1.96-9.15); NEUTROPHILS PERCENT AUTO 61 % (41-73); Platelet Count 151 K/mm3 (150-400); RDW Coefficient Variation 16.5 % (11.7-14.2); RDW Standard Deviation 50.8 fL (35.1-46.3); Red Blood Cell Count 4.58 M/mm3 (3.80-5.20); White Blood Cell Count 7.51 K/mm3 (4.00-11.30)
[2022-01-24 15:57] LABS: Albumin, Blood 3.1 g/dL (3.4-5.0); Anion Gap 7 mmol/L (6-16); Blood Urea Nitrogen 68 mg/dL (8-24); Bun/Creatinine Ratio 46.9 (12.0-20.0); CO2, Blood 29 mmol/L (21-32); Calcium, Blood 9.1 mg/dL (8.5-10.1); Chloride, Blood 100 mmol/L (98-108); Creatinine, Blood 1.45 mg/dL (0.40-1.00); Ferritin, Serum 16 ng/mL (8-252); Glomerular Filtration Rate 38 (60-); Glucose, Blood 355 mg/dL (70-99); Iron Serum 46 ug/dL (50-170); Percent Saturation 11.9 % (15.0-50.0); Phosphorus, Blood 4.1 mg/dL (2.5-4.9); Potassium, Blood 4.4 mmol/L (3.5-5.5); Sodium, Blood 136 mmol/L (136-145); Total Iron Binding Capacity 387 ug/dL (250-450)
[2022-01-24 17:03] LABS: Protein, Urine Random <5.0 mg/dL (0.0-11.9); Protein/Creat Ratio, Ur Random Unable to Calculate
== END ==
LOC: EDSTATUS 10:36 → LAB UVN 13:50
PROVIDERS: Internal Medicine
DX: E11.42 Type 2 diabetes mellitus with diabetic polyneuropathy (principal); E03.9 Hypothyroidism, unspecified; N18.30 Chronic kidney disease, stage 3 unspecified; I50.9 Heart failure, unspecified; E11.22 Type 2 diabetes mellitus with diabetic chronic kidney disease
CPT/HCPCS: 80069; 82306; 82570; 82728; 83540; 83550; 83970; 84156; 85025

== ENCOUNTER → 2022-01-24 | Outpatient (CLI) | payer MEDICARE, OTHER ==
[2022-01-24 13:00] LABS: BASOPHILS ABSOLUTE AUTO 0.04 K/mm3 (0.00-0.23); BASOPHILS PERCENT AUTO 1 % (0-2); EOSINOPHILS PERCENT AUTO 3 % (0-6); Hematocrit 38.9 % (33.0-51.0); Hemoglobin 12.5 g/dL (11.5-16.0); IMMATURE GRAN ABSOLUTE AUTO 0.02 K/mm3 (0.00-0.10); IMMATURE GRAN PERCENT AUTO 0 % (0-1); LYMPHOCYTES ABSOLUTE AUTO 1.93 K/mm3 (0.84-5.20); LYMPHOCYTES PERCENT AUTO 26 % (21-46); MONOCYTES ABSOLUTE AUTO 0.74 K/mm3 (0.16-1.47); MONOCYTES PERCENT AUTO 10 % (4-13); Mean Corpuscular HGB 28.5 pg (26.0-34.0); Mean Corpuscular HGB Conc 32.1 g/dL (31.5-36.5); Mean Corpuscular Volume 89 fL (80-100); Mean Platelet Volume 9.3 fL (9.1-12.4); NEUTROPHILS ABSOLUTE AUTO 4.59 K/mm3 (1.96-9.15); NEUTROPHILS PERCENT AUTO 61 % (41-73); Platelet Count 168 K/mm3 (150-400); RDW Coefficient Variation 14.6 % (11.7-14.2); Red Blood Cell Count 4.38 M/mm3 (3.80-5.20); White Blood Cell Count 7.52 K/mm3 (4.00-11.30)
[2022-01-24 15:08] LABS: Percent Saturation 20.7 % (15.0-50.0)
[2022-01-24 15:14] LABS: Albumin, Blood 4.1 g/dL (3.4-5.0); Albumin/Globulin Ratio 1.1 (0.8-1.8); Bilirubin, Total 0.5 mg/dL (0.1-1.0); Bun/Creatinine Ratio 24.3 (12.0-20.0); Creatinine, Blood 2.14 mg/dL (0.40-1.00); Globulin, Blood 3.6 g/dL (2.2-4.0); Phosphorus, Blood 4.4 mg/dL (2.5-4.9); Potassium, Blood 4.8 mmol/L (3.5-5.5); Total Protein, Blood 7.7 g/dL (6.4-8.2)
[2022-01-24 15:37] LABS: Creatinine, Urine Random 95.9 mg/dL (27.00-270.00); Protein, Urine Random 14.4 mg/dL (0.0-11.9); Protein/Creat Ratio, Ur Random 0.2
== END | disposition home or self-care (01) ==
LOC: LAB 11:55 → LAB SHORT 11:55
PROVIDERS: Internal Medicine Nephrology
DX: E11.22 Type 2 diabetes mellitus with diabetic chronic kidney disease (principal); N18.32 Chronic kidney disease, stage 3b; D63.1 Anemia in chronic kidney disease; E11.65 Type 2 diabetes mellitus with hyperglycemia; E03.9 Hypothyroidism, unspecified
CPT/HCPCS: 36415; 80053; 82306; 82570; 82728; 83540; 83550; 83970; 84100; 84156; 85025

== ENCOUNTER 2022-04-18 09:55 | Inpatient (IN) | payer MEDICARE, OTHER ==
[~2022-04-18] VITALS: Ht 165.1 cm; Wt 147.2 kg
[2022-04-18 10:26] LABS: BASOPHILS ABSOLUTE AUTO 0.07 K/mm3 (0.00-0.23); BASOPHILS PERCENT AUTO 0 % (0-2); EOSINOPHILS ABSOLUTE AUTO 0.05 K/mm3 (0.00-0.68); EOSINOPHILS PERCENT AUTO 0 % (0-6); Hematocrit 48.8 % (33.0-51.0); Hemoglobin 15.4 g/dL (11.5-16.0); IMMATURE GRAN ABSOLUTE AUTO 0.13 K/mm3 (0.00-0.10); IMMATURE GRAN PERCENT AUTO 1 % (0-1); LYMPHOCYTES ABSOLUTE AUTO 2.08 K/mm3 (0.84-5.20); LYMPHOCYTES PERCENT AUTO 10 % (21-46); MONOCYTES ABSOLUTE AUTO 1.27 K/mm3 (0.16-1.47); MONOCYTES PERCENT AUTO 6 % (4-13); Mean Corpuscular HGB 26.3 pg (26.0-34.0); Mean Corpuscular HGB Conc 31.6 g/dL (31.5-36.5); Mean Corpuscular Volume 83 fL (80-100); NEUTROPHILS ABSOLUTE AUTO 17.18 K/mm3 (1.96-9.15); NEUTROPHILS PERCENT AUTO 83 % (41-73); Platelet Count 256 K/mm3 (150-400); RDW Coefficient Variation 20.1 % (11.7-14.2); Red Blood Cell Count 5.86 M/mm3 (3.80-5.20); White Blood Cell Count 20.78 K/mm3 (4.00-11.30)
[2022-04-18 10:34] LABS: Albumin, Blood 3.4 g/dL (3.4-5.0); Albumin/Globulin Ratio 0.9 (0.8-1.8); Bilirubin, Total 0.9 mg/dL (0.1-1.0); Calcium, Blood 9.3 mg/dL (8.5-10.1); Creatinine, Blood 1.87 mg/dL (0.40-1.00); Globulin, Blood 3.7 g/dL (2.2-4.0); Potassium, Blood 4.8 mmol/L (3.5-5.5); Total Protein, Blood 7.1 g/dL (6.4-8.2)
[2022-04-18 10:35] LABS: Bicarbonate Venous 24.4 mmol/L (24.0-30.0); PCO2 Venous 52.6 mmHg (38-42); pH Blood Venous 7.32 (7.34-7.37)
[2022-04-18 11:06] LABS: Influenza A, PCR NEGATIVE (NEGATIVE); Influenza B, PCR NEGATIVE (NEGATIVE); Resp Syncytial Virus, PCR NEGATIVE (NEGATIVE)
[2022-04-18 11:07] LABS: SARS-Cov-2 (COVID-19) PCR, MMC POSITIVE (NEGATIVE)
[2022-04-18] MEDS ORDERED: BASAGLAR K100 UNIT/8 SC (11:47)
[2022-04-18] MEDS ORDERED: OZEMPIC0.25 MG/0. SQ (11:47)
[2022-04-18] MEDS ORDERED: ATORVASTATIN 40 MG (11:48)
[2022-04-18] MEDS ORDERED: SPIRONOLACTONE25 MG PO (11:49)
[2022-04-18] MEDS ORDERED: MIRAPEX ER0.375 MG PO (11:49)
[2022-04-18] MEDS ORDERED: FUROSEMIDE40 MG PO (11:50)
[2022-04-18 14:55] LABS: Base Excess Venous 1.1 mmol/L
--- NOTE | 2022-04-18 16:00 | NUR ---
PT ARRIVES FROM ED CURRENTLY ON BIPAP 01/23, 80% FIO2. PT. ALERT AND ORIENTED, ANSWERING QUESTIONS. PT TRANSFERRED TO ICU BED. PT ABLE TO ASSIST WITH TURN UPON ARRIVAL, ATTENDS CHANGED AND PUREWICK PLACED. PT HAS OCCASIONAL HARSH COUGH HOWEVER NOT PRODUCTIVE AT THIS TIME. D10 GTT INFUSING AT 75ML/HR. BG CHECKED UPON ARRIVAL AND WAS IN THE 50S, DR. RODRIGUEZ NOTIFIED, D10 GTT INCREASED TO 100ML/HR PT CONTINUES IN AFIB HR 120S-150S, MAP>65 AT THIS TIME.EXTREM COOL TO TOUCH, CORE WARM. BILAT FEET HAVE BLUISH DISCOLORATION. WARM BLANKET PLACED. FAMILY UPDATED.
--- NOTE | 2022-04-18 18:49 | NUR ---
CALL TO DR. RODRIGUEZ REGARDING ELEVATED HR ALBUMIN ORDERED AT THIS TIME, AND AFTER ALBUMIN IF BP IS STABLE PRN METOPROLOL IV PUSH ORDERED. PT. CONTINUES ON D10 INFUSION AT 100ML/HR. PT PLACED BACK ON BIPAP TO SLEEP, ORAL CARE COMPLETED AND CHAPSTICK APPLIED PRIOR TO MASK PLACEMENT. FAMILY UPDATED.
[2022-04-19 03:49] LABS: Hematocrit 42.2 % (33.0-51.0); Hemoglobin 13.7 g/dL (11.5-16.0); Mean Corpuscular HGB 26.6 pg (26.0-34.0); Mean Corpuscular HGB Conc 32.5 g/dL (31.5-36.5); Mean Corpuscular Volume 82 fL (80-100); Platelet Count 162 K/mm3 (150-400); RDW Coefficient Variation 19.3 % (11.7-14.2); RDW Standard Deviation 56.9 fL (35.1-46.3); Red Blood Cell Count 5.16 M/mm3 (3.80-5.20); White Blood Cell Count 29.68 K/mm3 (4.00-11.30)
--- NOTE | 2022-04-19 05:28 | NUR ---
PATIENT IS AOX4, NO PAIN OR DISTRESS. BIPAP OVERNIGHT. AF WITH HR 108-145 MOST OF THE NIGHT. BP HAS BEEN VERY LABILE. 80'S-130 SBP AVERAGE. METOPROLOL GIVEN WITH NO SIGNIFICANT CHANGE. AMIO GIVEN WITH MILD RELIEF OF HR 108-133. PT BG STABLE >100. DEXTROSE FLUIDS TAPERED OFF AND EVENTUALLY STOPPED. LBG 143 AT 0500. MD LYON AND RANJEET CONTACTED REGARDING PT CONTINUED HIGH HR AND FLUCTUATING BP, ELEVATED BG. ONE BM OVERNIGHT. NO CP OR TROUBLE BREATHING.
--- NOTE | 2022-04-19 08:00 | NUR ---
ASSUMED CARE OF PT AT 0800 PT RESTING IN BED WITH NO VISITORS AT THIS TIME. A/O X4. ALL VITALS WNL AT THIS TIME. SEE ASSESSMENT FOR FURHTER INFORMATION.
[2022-04-19 09:21] LABS: Test Name CHEM 8
--- NOTE | 2022-04-19 10:31 | NUR ---
ASSUMED CARE OF PT AT 0800 PT RESTING IN BED WITH NO VISITORS AT THIS TIME. A/O X4. BP AND HR WNL AT THIS TIME. JOE DRAINING TO GRAVITY WITH YELLOW URINE PRESENT. NO C/O PAIN AT THIS TIME. PLEASE SEE FULL ASSESSMENT FOR FURTHER INFORMATION.
[2022-04-19 12:33] LABS: Result SEE SEPERATE REPORT
--- NOTE | 2022-04-19 17:50 | NUR ---
END OF SHIFT SUMMARY PT A/O X4. NO VISITORS IN THIS SHIFT. RESP- >93% ON 5LMP NC. LUNG SOUNDS COURSE IN ALL LOBES. PT HAS WET COUGH THAT HAS NOT BEEN PRODUCTIVE AT THIS POINT. CARDIAC- BP SOFT WITH SYSTOLICS IN THE 80'S TO 90'S. BP HAS HAD TO BE DONE MANUALLY WITH DOPPLER AT TIMES IN ORDER TO GET ACCURATE READINGS. HR IN 140'S MOST OF THE DAY. DIG GIVEN PER MAR ORDERS WELL METOPROLOL PO 25MG. PT CONTINUES TO BE HYPERTENSIVE IN THE 110'S TO 130'S AT TIMES. GI, - PT IS NOT CONTINENT OF BLADDER, PUREWICK IN PLACE. 2 BM'S THIS SHIFT. SMALL AND THICK BROWN STOOL. INTEG- PT HAS POSSIBLE FUNGAL INFECTION UNDER RIGHT BREAST. MICONOZOLE POWDER ORDERED. BRUISING FOUND THROUGHOUT IN VARIUS STAGED OF HEALING. PT TOES ARE DISCOLORED WELL. PT REPORTS BEING BED BOUND IN CURRENT FACILITY WITH MINIMAL TO NONE TO WHEELCHAIR D/T SIGNIFICANT SWELLING IN BLE. SALINE LOCKED AT THIS TIME. WILL CONTINUE TO MONITOR UNTIL MACHINE JOINER CEMENTER RN IS GIVEN REPORT.
[2022-04-20 05:58] LABS: Hematocrit 40.6 % (33.0-51.0); Hemoglobin 13.1 g/dL (11.5-16.0); Mean Corpuscular HGB 26.2 pg (26.0-34.0); Mean Corpuscular HGB Conc 32.3 g/dL (31.5-36.5); Mean Corpuscular Volume 81 fL (80-100); Platelet Count 135 K/mm3 (150-400); RDW Coefficient Variation 19.1 % (11.7-14.2); RDW Standard Deviation 56.3 fL (35.1-46.3); White Blood Cell Count 16.31 K/mm3 (4.00-11.30)
[2022-04-20 06:31] LABS: Bun/Creatinine Ratio 63.2 (12.0-20.0); Calcium, Blood 9.4 mg/dL (8.5-10.1); Creatinine, Blood 1.71 mg/dL (0.40-1.00); Magnesium, Blood 2.9 mg/dL (1.6-2.4)
--- NOTE | 2022-04-20 07:00 | NUR ---
ASSUME CARE: I have assumed care of this patient.
--- NOTE | 2022-04-20 18:39 | NUR ---
TRANSFER NOTE ASSUMED CARE OF PATIENT AT 1700. TRANSFER FROM ICU. PATIENT ARRIVED TO ROOM 19 ON BARIATRIC BED. ALERT AND ORIENTED AND VERY PLEASANT. ON ROOM AIR BUT SATS ABOUT 88%, SUBSEQUENTLY PLACED ON 1L O2 VIA NC. SATS STABLE IN LOW 90S. COVID POSITIVE, LS COARSE THROUGHOUT, CONGESTED NON-PRODUCTIVE COUGH. ORDER FOR SPUTUM SAMPLE, SAMPLE CUP AT BEDSIDE, PATIENT EDUCATED TO OBTAIN IF PRODUCES SPUTUM. OTHER VSS. PUREWICK IN PLACE DRAINING CLEAR YELLOW URINE. OBESE AND BEDREST AT BASELINE, LIVES AT [facility]. REDNESS TO FOLDS UNDER BREASTS AND PANNUS, ORDERS FOR POWDER ON EMAR. TOLERATED ADA DINNER AND ICE WATER. MEDICATED FOR MILD RIB PAIN WITH TYLENOL. BIPAP IN ROOM FOR USE WHILE SLEEPING TONIGHT. HEART RATE AFIB WITH RVR, PRN IV METOPROLOL AT 1630. RATE CURRENTLY 100S.
--- NOTE | 2022-04-20 21:26 | NUR ---
CONTACTED NIGHT RESIDENT DR. Almaraz REGARDING PT'S CBG OF 305 BUT PT HAD BEEN ADMITTED WITH HYPOGLYCEMIA AND PER DR RODRIGUEZ'S NOTE, PT ACCEPTABLE TO BE HYPERGLYCEMIC. DR Almaraz ORDERED CHANGE IN PT'S MEAL CORRECTION FROM LOW CS TO MED CS STARTING IN THE AM. ALSO INFORMED RESIDENT OF THE PT'S ELEVATED HR - PT HAD BEEN MEDICATED WITH TOPROL XL SO THIS RN WAS INSTRUCTED TO MONITOR PT'S HR AND USE PRN IV LOPRESSOR WHEN AVAILABLE.
[2022-04-21 04:48] LABS: Bun/Creatinine Ratio 67.7 (12.0-20.0); Calcium, Blood 9.2 mg/dL (8.5-10.1); Creatinine, Blood 1.64 mg/dL (0.40-1.00)
--- NOTE | 2022-04-21 06:01 | NUR ---
TOLL BOOTH OPERATOR SUMMARY ASSUMED CARE OF THE PT AT 1900. SHE IS ALERT AND ORIENTED X3, VERY PLEASANT WITH STAFF. PT CONTINUES TO HAVE AFIB WITH RATES BETWEEN 110 AND 140S, PT DENIES ANY CHANGE IN SYMPTOMS. GIVEN PO TOPROL LAST NIGHT AND PLACED ON BIPAP WITH SOME IMPROVEMENT INTO THE 90S AT TIMES. PT HR BACK UP TO THE 120S AND 130S THIS MORNING SO GIVEN PRN IV LOPRESSOR. BP STABLE. PT HAD MEDIUM SOFT BROWN BM LAST NIGHT. OXYGEN SATURATIONS AROUND 94% ON 1L BY NC WHEN PT NOT ON BIPAP. SHE REPORTS THAT SHE "BARELY SLEPT A WINK" ON THE BIPAP. PT IS A LIFT PT. REDNESS TO THE AREAS UNDER HER BREASTS AND PANNUS RED BUT APPEAR TO BE IMPROVING. PT DENIED CHEST PAIN THIS SHIFT.
--- NOTE | 2022-04-21 17:11 | NUR ---
END OF SHIFT: NEURO: PATIENT IOS PLEASANT COOPERATIVE WITH CARE. CAN BE FORGETFUL A/O X 3-4. PATIENT ANXIOUS AT TIMES. REORIENTED EASILY. CARDIAC: INCREASE TO PATIENT METOPROLOL TO 75MG BID HR HAS BEEN UPPER 80'S -120'S TYPICALLY. WITH EXTREME EXERTION FOR PATIENT 140'S WHICH IS IMPROVED FROM PREVIOUS RN REPORT. DENIES CHEST PAIN OR PRESSURE. IS NOT ACTIVELY SOB AT REST. PULM: PATIENT HAS BEEN COOPERATIVE WITH SLEEPING WITH BIPAP FOR SHORT PERIODS OF TIME. PATIENT REACTION AND ABILITY TO CONVERSE ALL IMPROVED. PATIENT TOELRATED 1 .5 HOURS OF BIPAP WELL. CURRENLTY ON 1L VIA NC. SPO2 >90% EXCEPT WHILE SLEEPING, NEEDS MASK TO MAINTAIN. GI/: PATIENT HAS WICKING SYSTEM IN PLACE, HAS BEEN CHANGED THIS SHIFT. DIURESING WELL. PATIENT IS IN NO SIGN OF ACUTE DISTRESS, PATIENT HAS NO CONCERNS QUESTIONS OR COMMENTS IN REGAURDS TO CARE AT THIS TIME, WILL CONTINUE TO MONITOR UNTIL SHIFT CHANGE.
[2022-04-22 04:50] LABS: BASOPHILS ABSOLUTE AUTO 0.01 K/mm3 (0.00-0.23); BASOPHILS PERCENT AUTO 0 % (0-2); EOSINOPHILS PERCENT AUTO 0 % (0-6); Hemoglobin 14.2 g/dL (11.5-16.0); IMMATURE GRAN ABSOLUTE AUTO 0.06 K/mm3 (0.00-0.10); IMMATURE GRAN PERCENT AUTO 1 % (0-1); LYMPHOCYTES ABSOLUTE AUTO 0.52 K/mm3 (0.84-5.20); LYMPHOCYTES PERCENT AUTO 6 % (21-46); MONOCYTES ABSOLUTE AUTO 0.45 K/mm3 (0.16-1.47); MONOCYTES PERCENT AUTO 5 % (4-13); Mean Corpuscular HGB 26.3 pg (26.0-34.0); Mean Corpuscular HGB Conc 32.3 g/dL (31.5-36.5); Mean Corpuscular Volume 82 fL (80-100); NEUTROPHILS ABSOLUTE AUTO 8.11 K/mm3 (1.96-9.15); NEUTROPHILS PERCENT AUTO 89 % (41-73); Platelet Count 120 K/mm3 (150-400); RDW Coefficient Variation 18.7 % (11.7-14.2); RDW Standard Deviation 55.6 fL (35.1-46.3); White Blood Cell Count 9.15 K/mm3 (4.00-11.30)
[2022-04-22 05:15] LABS: Albumin, Blood 2.9 g/dL (3.4-5.0); Anion Gap 7 mmol/L (6-16); Blood Urea Nitrogen 112 mg/dL (8-24); Bun/Creatinine Ratio 67.1 (12.0-20.0); CO2, Blood 27 mmol/L (21-32); Calcium, Blood 9.1 mg/dL (8.5-10.1); Chloride, Blood 98 mmol/L (98-108); Creatinine, Blood 1.67 mg/dL (0.40-1.00); Glomerular Filtration Rate 32 (60-); Glucose, Blood 256 mg/dL (70-99); Phosphorus, Blood 4.6 mg/dL (2.5-4.9); Potassium, Blood 4.7 mmol/L (3.5-5.5); Sodium, Blood 132 mmol/L (136-145)
--- NOTE | 2022-04-22 06:53 | NUR ---
ELECTROMAGNET CRANE OPERATOR SUMMARY ASSUMED CARE OF THE PT AT 1900. SHE IS ALERT AND ORIENTED X3, PLEASANT AND COOPERATIVE WITH STAFF. PT HEART RATE VARIES BETWEEN THE 100S AND 110S WHEN ON BIPAP DURING HS WITH INTERMITTENT BUT SHORT RISES TO THE 130S. SHE REPORTS SLEEPING BETTER LAST NIGHT AND WAS ABLE TO TOLERATE THE BIPAP UNTIL AROUND 0400 THIS MORNING. PT WITH PUREWICK IN PLACE AND GOOD YELLOW URINE OUTPUT. LUNG SOUNDS COARSE. SATURATIONS HAVE REMAINED >90% AND PT CURRENTLY RESTING ON NC AT 2L. NO CHEST PAIN BUT MEDICATED WITH TYLENOL FOR RIB PAIN FROM COUGHING.
--- NOTE | 2022-04-22 08:43 | NUR ---
AM NOTE Pt alert, oriented x3; calm and cooperative with care. Pt resting in bed, repositioned with assistance. Pt denies pain, chest pain/pressire, sob, nausea, dizziness and numb/tingling. Pt tele afib bbb pvc 100-120's, bp stable. Spo2 >90% on 1l 2o via nc, breathing even and unlabored, pt states she is feeling better with improved resp symptoms. Abd soft, nontender with hyperactive bt. Edema noted to ble and generalized. Pure wick in place, set to suction. Other vss. No other acute changes noted. Will continue to monitor.
--- NOTE | 2022-04-22 18:35 | NUR ---
Shift Summary Tele afib 90-120, occasionally hitting 130-140's. Other vss. No other acute changes noted. Will continue to monitor.
[2022-04-23 04:59] LABS: BASOPHILS ABSOLUTE AUTO 0.01 K/mm3 (0.00-0.23); BASOPHILS PERCENT AUTO 0 % (0-2); EOSINOPHILS PERCENT AUTO 0 % (0-6); Hematocrit 46.1 % (33.0-51.0); Hemoglobin 14.9 g/dL (11.5-16.0); IMMATURE GRAN ABSOLUTE AUTO 0.06 K/mm3 (0.00-0.10); IMMATURE GRAN PERCENT AUTO 1 % (0-1); LYMPHOCYTES ABSOLUTE AUTO 0.66 K/mm3 (0.84-5.20); LYMPHOCYTES PERCENT AUTO 8 % (21-46); MONOCYTES ABSOLUTE AUTO 0.59 K/mm3 (0.16-1.47); MONOCYTES PERCENT AUTO 7 % (4-13); Mean Corpuscular HGB Conc 32.3 g/dL (31.5-36.5); Mean Corpuscular Volume 81 fL (80-100); NEUTROPHILS ABSOLUTE AUTO 6.78 K/mm3 (1.96-9.15); NEUTROPHILS PERCENT AUTO 84 % (41-73); Platelet Count 116 K/mm3 (150-400); RDW Coefficient Variation 18.8 % (11.7-14.2); RDW Standard Deviation 54.4 fL (35.1-46.3); Red Blood Cell Count 5.72 M/mm3 (3.80-5.20)
[2022-04-23 05:19] LABS: Albumin, Blood 2.8 g/dL (3.4-5.0); Anion Gap 7 mmol/L (6-16); Blood Urea Nitrogen 107 mg/dL (8-24); Bun/Creatinine Ratio 67.3 (12.0-20.0); CO2, Blood 27 mmol/L (21-32); Calcium, Blood 9.4 mg/dL (8.5-10.1); Chloride, Blood 100 mmol/L (98-108); Creatinine, Blood 1.59 mg/dL (0.40-1.00); Glomerular Filtration Rate 34 (60-); Glucose, Blood 283 mg/dL (70-99); Phosphorus, Blood 4.2 mg/dL (2.5-4.9); Potassium, Blood 4.7 mmol/L (3.5-5.5); Sodium, Blood 134 mmol/L (136-145)
--- NOTE | 2022-04-23 06:46 | NUR ---
AUTOMOTIVE SOFTWARE ENGINEER SUMMARY ASSUMED CARE OF THE PT AT 1900. SHE IS ALERT AND ORIENTED X4, VERY ANIMATED AND COOPERATIVE THIS SHIFT. PT REPORTS THAT SHE IS FEELING MUCH IMPROVED AND HER COUGH IS IMPROVING WELL. SHE HAS BEEN RESTING ON 1L BY NC THROUGHOUT THE DAY WITH SATURATIONS IN THE MID TO HIGH 90S, BIPAP USED AT NIGHT AND PT ABLE TO SLEEP COMFORTABLY. SHE IS NOW ABLE TO ASSIST WITH ROLLING AND TURNING. PUREWICK STILL IN PLACE DUE TO INCONTINENCE AND LARGE OUTPUTS. TELE HAS BEEN AFIB RANGING BETWEEN 90S AND 130S WITH LESS INCIDENCES OF TACHYCARDIA. BP STABLE. HEEL PROTECTORS PLACED DUE TO COMPLAINTS OF SOME SORENESS.
--- NOTE | 2022-04-23 08:34 | NUR ---
AM NOTE Pt alert, oriented X4; calm and cooperative with care. Pt resting in bed, repositioned. Pt denies pain, chest pain/pressure, sob, nasues, dizziness and numb/tingling. Tele afib 100-110's, bp stable. Edema noted to ble. Spo2 >90% on 1L o2 via nc, breathing even and unlabored. Abd soft nontedner with +bt. Purewick and attends in place. Other vss. No other acute changes noted. Will continue to monitor.
--- NOTE | 2022-04-23 18:21 | NUR ---
Shift Summary Tele afib contines to average 100-110, bp elevated, medicated per emar. Pt continues with purewick, replaced this shift. Pt spo2 >90% for majoirty of shift, titrated down to ra. Other vss. No other acute changes noted. Will continue to monitor.
--- NOTE | 2022-04-24 06:24 | NUR ---
SHIFT SUMMARY NO ACUTE CHANGES NOTED THROUGH THE NIGHT, PT REMAINS A&O X3, COOPERATIVE W/CARE, VSS, RESP UNLABORED, NON PRODUCTIVE COUGH, SPO2 >93% ON 2L O2 VIA NC. RT ATTEMPTED TO D/C O2, PT WAS PLACED BACK ON DUE TO DESATS OF 86-91% WHILE AT REST, PT ENC TO DB&C, PT WORE HER CPAP WITH NO PROBLEMS FOR APPROX 6 HRS. Q2 TURNS PROVIDED USING THE LIFT, PUREWICK IN PLACE, CLEAR YELLOW URINE NOTED. TOLERATING PO INTAKE, CALLS FOR ASSISTANCE PRN, CALL LIGHT IN REACH, WCTM & REPORT TO ONCOMING RN.
--- NOTE | 2022-04-24 08:59 | NUR ---
PT RECEIVED A BED BATH THIS AM, AND FULL LINEN CHANGE. SHE STATES THAT SHE FEELS CONSTIPATED, IS UNSURE OF HER LAST BM. BOWEL TONES ACTIVE. ABD IS ROTUND. CEILING LIFT UTILIZED, WITH ASSISTANCE FROM 2-3 STAFF. A&O X4. ROOM AIR, DESTATED WITH TURNING IN BED AND REPLACED 1LPM NC. AT REST, CAN MAINTAIN SATS >92% ON ROOM AIR. INCONTINENT OF URINE, PUREWICK IN PLACE. REPORTS TOLERATING CPAP WELL LAST NIGHT, FEELS RESTED THIS AM. DR. GAY AT BEDSIDE ENCOURAGES PT TO WEAR CPAP AT HOME AFTER DISCHARGE TO DECREASE BURDEN ON HER HEART WITH CHF. PT VERBALIZED UNDERSTANDING. USES CALL LIGHT APPROPRIATELY, RN GAVE REPORT TO NURSE CONTRERAS.
[2022-04-24] MEDS ORDERED: ATOR40TA PO (10:49)
[2022-04-24] MEDS ORDERED: MICONAZOLE NITR85 GM TOP (10:56)
[2022-04-24] MEDS ORDERED: HUMALOG KW100 UNIT/1 SC (10:57)
--- NOTE | 2022-04-24 11:35 | NUR ---
No acute changes noted. Pt left via gurney at 1132. Report called to [facility].
--- NOTE | 2022-04-24 13:08 | NUR ---
Assumed care of patient at approx 0900. Agree with previous international nurse. Vss. no other acute changes. Report given to [place] at [facility]. Pt left via [place] at 1303 with [facility].
== END 2022-04-24 13:04 | DRG 871 ==
LOC: ER 09:55 → PCU 11:14 → ICUE 11:14 → PCU 04-20 16:58
PROVIDERS: Emergency Medicine; Internal Medicine; ADMIT Internal Medicine
PROC: 3E0333Z Introduction of Anti-inflammatory into Peripheral Vein, Percutaneous Approach (ICD-10-PCS; principal; 2022-04-18)
PROC: 3E03329 Introduction of Other Anti-infective into Peripheral Vein, Percutaneous Approach (ICD-10-PCS; 2022-04-18)
PROC: 0T9B70Z Drainage of Bladder with Drainage Device, Via Natural or Artificial Opening (ICD-10-PCS; 2022-04-18)
PROC: 5A09357 Assistance with Respiratory Ventilation, Less than 24 Consecutive Hours, Continuous Positive Airway Pressure (ICD-10-PCS; 2022-04-18)
DX: A41.89 Other specified sepsis (principal); I40.0 Infective myocarditis; I50.43 Acute on chronic combined systolic (congestive) and diastolic (congestive) heart failure; U07.1 COVID-19; J96.21 Acute and chronic respiratory failure with hypoxia; J96.22 Acute and chronic respiratory failure with hypercapnia; I13.0 Hypertensive heart and chronic kidney disease with heart failure and stage 1 through stage 4 chronic kidney disease, or unspecified chronic kidney disease; N17.9 Acute kidney failure, unspecified; Z68.43 Body mass index [BMI] 50.0-59.9, adult; E87.29 Other acidosis; L03.90 Cellulitis, unspecified; I42.0 Dilated cardiomyopathy; Z66 Do not resuscitate; R65.20 Severe sepsis without septic shock; I48.91 Unspecified atrial fibrillation; E66.01 Morbid (severe) obesity due to excess calories; N18.30 Chronic kidney disease, stage 3 unspecified; E11.649 Type 2 diabetes mellitus with hypoglycemia without coma; E11.22 Type 2 diabetes mellitus with diabetic chronic kidney disease; E78.5 Hyperlipidemia, unspecified; E03.9 Hypothyroidism, unspecified; M19.90 Unspecified osteoarthritis, unspecified site; M62.3 Immobility syndrome (paraplegic); J47.9 Bronchiectasis, uncomplicated; J98.8 Other specified respiratory disorders; Z79.4 Long term (current) use of insulin; Z79.899 Other long term (current) drug therapy; Z79.01 Long term (current) use of anticoagulants; Z79.84 Long term (current) use of oral hypoglycemic drugs; Z87.891 Personal history of nicotine dependence
CPT/HCPCS: 0241U; 31720; 36415; 71045; 80048; 80053; 80069; 82803; 82947; 83605; 83735; 83880; 84443; 84484; 85025; 85027; 87040; 92526; 92610; 93005; 93010; 94640; 94660; 94664; 94762; 96365; 96366; 96367; 96375; 96376; 99285-25; A9270; C8929; J0282; J0456; J0696; J1100; J1160; J1650; J1815; J1940; J2405; J2543; J7050; J7070; J7799; P9047; Q9957